=== PATIENT | female | born 1990 | race Caucasian/White ===

== ENCOUNTER 2020-07-03 16:37 | Inpatient (IN) ==
[2020-07-03] MEDS ORDERED: Isovue-370 500 ML BOTTLE IVP ONE ×2 (16:53)
[2020-07-03 17:32] LABS: Basophils # 0.1 K/mcL (0.0-0.2); Basophils % 0.4 %; Eosinophils % 0.1 %; Hematocrit 41.4 % (35.3-44.9); Hemoglobin 13.8 g/dL (11.5-15.4); Immature Granulocytes % 0.4 % (0-4); Lymphocytes # 3.2 K/mcL (0.6-4.6); Lymphocytes % 23.3 %; Mean Corpuscular HGB Conc 33.3 g/dL (31.6-35.5); Mean Corpuscular Hemoglobin 31.9 pg (28.0-33.3); Mean Corpuscular Volume 95.6 fL (83.0-100.0); Mean Platelet Volume 9.8 fL (9.4-12.4); Monocytes # 1.1 K/mcL (0.0-1.3); Monocytes % 7.7 %; Neutrophils # 9.3 K/mcL (1.6-8.9); Platelet Count 321 K/mcL (140-400); Red Blood Count 4.33 M/mcL (3.82-4.97); Red Cell Distribution Width 11.6 % (11.5-14.5); Segmented Neutrophils % 68.1 %; White Blood Count 13.7 K/mcL (4.3-11.1)
[2020-07-03 17:43] LABS: Amphetamine Screen,Urine Negative ng/mL (Cutoff=1000); Barbiturate Screen,Urine Negative ng/mL (Cutoff=200); Benzodiazepines Screen,Urine Negative ng/mL (Cutoff=200); Cannabinoid Screen,Urine Positive ng/mL (Cutoff = 50); Cocaine Screen,Urine Negative ng/mL (Cutoff= 300); Opiate Screen,Urine Negative ng/mL (Cutoff=300); Phencyclidine Screen,Urine Negative ng/mL (Cutoff=25)
[2020-07-03 17:49] LABS: Acetaminophen < 10 mcg/mL (10-20); Alanine Aminotransferase 17 Units/L (7-52); Albumin 4.6 g/dL (3.5-5.7); Albumin/Globulin Ratio 1.5 (1.1-2.2); Alkaline Phosphatase 38 Units/L (34-104); Aspartate Amino Transferase 43 Units/L (13-39); BUN/Creatinine Ratio 15 (6-26); Bilirubin,Direct 0.1 mg/dL (0.0-0.2); Bilirubin,Indirect 0.6 mg/dL (0.0-1.0); Bilirubin,Total 0.7 mg/dL (0.3-1.0); Blood Urea Nitrogen 14 mg/dL (6-20); Calcium 9.5 mg/dL (8.6-10.3); Carbon Dioxide 24 mEq/L (23-29); Chloride 105 mEq/L (98-107); Ethanol < 10 mg/dL (Less than 10); Globulin 3.1 g/dL (2.4-3.5); Glucose 88 mg/dL (70-105); Osmolality,Calculated 290 (280-300); Potassium 3.7 mEq/L (3.5-5.1); Salicylate < 2.5 mg/dL (15.0-30.0); Sodium 140 mEq/L (136-145); Total Protein 7.7 g/dL (6.4-8.9); eGFR For African Americans > 60 (> 60); eGFR For Non-African Americans > 60 (> 60)
[2020-07-03 18:05] LABS: Bilirubin,Urine Negative (Negative); Blood,Urine Negative (Negative); Clarity,Urine Clear (Clear); Color,Urine Yellow (Yellow); Glucose,Urine (UA) Normal (Normal); Ketones,Urine 10 mg/dL (Negative); Leukocyte Esterase,Urine Negative (Negative); Mucus,Urine Many per lpf (None-Few); Nitrite,Urine Negative (Negative); PH,Urine 8.5 pH Units (5.0-8.0); Protein,Urine >=600 mg/dL (Neg-Trace); Specific Gravity,Urine 1.029 (1.010-1.025); Squamous Epithelial Cell,Urine Few per hpf (None-Few); Urobilinogen,Urine Normal (Normal); WBC,Urine 0-3 per hpf (0-3)
[2020-07-03] MEDS ORDERED: Acetaminophen 325 MG TABLET PO PRN (21:00)
[2020-07-03] MEDS ORDERED: Mag Hydrox/Al Hydrox/Simeth 30 ML UDC PO PRN (21:00)
[2020-07-03] MEDS ORDERED: hydrOXYzine pamoate 25 MG CAPSULE PO PRN (21:00)
[2020-07-03] MEDS ORDERED: Haloperidol Lactate 5 MG/ML VIAL IM PRN (21:00)
[2020-07-03] MEDS ORDERED: traZODone 50 MG TABLET PO PRN (21:00)
[2020-07-03] MEDS ORDERED: *HR* LORazepam 1 MG TABLET PO PRN (21:00)
[2020-07-03] MEDS ORDERED: *HR* LORazepam 2 MG/ML VIAL IM PRN (21:00)
[2020-07-03] MEDS ORDERED: haloperidoL 5 MG TABLET PO PRN (21:00)
[2020-07-03] MEDS ORDERED: MOM Conc 10 ML UD.LIQ PO PRN (21:00)
[2020-07-04] MEDS: FLUoxetine 20 MG CAPSULE PO SCH (09:31)
[2020-07-04] MEDS: Neosporin OINT 15 GM TUBE TP PRN ×2 (17:49→21:44)
[2020-07-04] MEDS ORDERED: ARIPiprazole 2 MG TABLET PO SCH (21:00)
[2020-07-05] MEDS: FLUoxetine 20 MG CAPSULE PO SCH (08:57)
[2020-07-05] MEDS: Neosporin OINT 15 GM TUBE TP PRN ×3 (08:59→21:16)
[2020-07-05] MEDS: Fluticasone Propionate Nasal 50 MCG/SPRAY BOTTLE NS PRN (11:47)
[2020-07-05] MEDS ORDERED: ARIPiprazole 5 MG TABLET PO SCH (21:00)
[2020-07-06] MEDS: FLUoxetine 20 MG CAPSULE PO SCH (08:54)
[2020-07-06] MEDS: Fluticasone Propionate Nasal 50 MCG/SPRAY BOTTLE NS PRN (08:56)
[2020-07-06 08:59] VITALS: BP 136/83
[2020-07-06] MEDS ORDERED: LOSARTAN 25 MG PO SCH (18:00)
[2020-07-06] MEDS ORDERED: MONTELUKAST SODIUM 10 MG PO SCH (21:00)
== END 2020-07-06 13:10 | disposition home or self-care (01) | DRG 885 ==
LOC: EMEROOARM 16:37 → 1ANU 20:53
PROVIDERS: ADMIT Psychiatry & Neurology Psychiatry; ATTEND Psychiatry & Neurology Psychiatry